=== PATIENT | male | born 1980 | race Caucasian/White ===

== ENCOUNTER 2016-11-13 11:06 | Emergency (ER) | payer OTHER ==
--- NOTE | 2016-11-13 12:31 | ED NURSING NOTES ---
Clinical Report - Nurses [facility] [address] [place] [address] 11/13/2016 11:06 Patient: JEWELS ACKERMAN TRIAGE Triage time 11:20. Acuity: LEVEL 4. Chief Complaint: BLOODY STOOLS. 11:11/13/16. Alert. No acute distress. ANASTASIA COMA SCORE: [place] Coma Scale: 15- eyes open spontaneously (4); best verbal response- oriented x 4 (5); best motor response- obeys commands (6). --11:31 Devin Perez R.N. 11:31 11/13/16. BP: 169/118. HR: 102. RR: 20. O2 saturation: 100%. Temp: 98.3 F. Pain level now 0/10. --11:31 Devin Perez R.N. Weight: 129.2 kg stated. Height/Length: 73 inches Per Patient. BMI: 37.6. --11:28 Devin Perez R.N. Medications Ibuprofen Oral. --11:30 Devin Perez R.N. Percocet Oral. --11:31 Devin Perez R.N. Vicodin Oral. --11:31 Devin Perez R.N. Allergies No Known Drug Allergy. --11:30 Devin Perez R.N. History Historian: patient. Primary physician (amira). ( Pt states he noted bright red blood in stool one week ago and "maybe again the other day". Currently not noticing blood in his stool. Pt also complains of chills.). Onset. (1 weeks ago). Treatment [employer]RE [employer]AD[employer]KER: Took ibuprofen. SOCIAL HX: Heavy tobacco smoker (cigarette)- less than 1 pack per day. History of drug use: marijuana. No alcohol use. FALL RISK ASSESSMENT: Fall risk assessment completed. No fall risk identified. NUTRITIONAL RISK ASSESSMENT: The nutritional risk assessment revealed no deficiencies. FUNCTIONAL ASSESSMENT: Functional assessment: no impairments noted. LEARNING NEEDS ASSESSMENT: The learning needs assessment revealed no barriers. SKIN INTEGRITY ASSESSMENT: Skin integrity risk assessment completed. No skin integrity risk identified. --11:31 Devin Perez R.N. SOCIAL HX: History of drug use. (percocet & vicodin from a friend). --11:32 Devin Perez R.N. ( Also complaining of back discomfort and numbness "from shoulders down in my back"). --11:32 Devin Perez R.N. PROBLEMS: Laceration. Hernia. Otitis Media. Abscess. Cellulitis. Hypertension. --11:30 Devin Perez R.N. Interventions To waiting room. --11:31 Devin Perez R.N. NURSING PROGRESS NOTES 12:02 11/13/16. The plan of care for this patient has been created. Patient gowned. Head of bed elevated. Two patient identifiers checked. Call light placed in reach. Side rails up x 2. Bed placed in lowest position. Brakes of bed on. Brakes of chair on. --12:02 Destin Blanchard R.N. 12:02 11/13/16. Patient ready for evaluation- chart flagged and notification provided. --12:02 Destin Blanchard R.N. DISPOSITION / DISCHARGE The patient left the Emergency Department without being seen by a physician; patient was accompanied by a barrel loader and cleaner. The patient appears to be alert and oriented x4. He notified the ED staff prior to leaving the department and stated is leaving the ED due to the long waiting time and to go to their primary care physician. Notified the ED physician and charge nurse of patient departure. Prior to leaving the ED, he was advised to stay for completion of treatment and return if needed. He left the Emergency Department ambulatory and via private vehicle. --12:31 Devin Perez R.N. Departure time: 1230. --12:31 Devin Perez R.N. Locked/Released at 11/13/2016 12:48 by Destin Blanchard R.N.
--- NOTE | 2016-11-13 12:31 | ED NURSING NOTES ---
Clinical Report - Nurses [facility] [address] [place] [address] 11/13/2016 11:06 Patient: JEWELS ACKERMAN TRIAGE Triage time 11:20. Acuity: LEVEL 4. Chief Complaint: BLOODY STOOLS. 11:11/13/16. Alert. No acute distress. ANASTASIA COMA SCORE: [place] Coma Scale: 15- eyes open spontaneously (4); best verbal response- oriented x 4 (5); best motor response- obeys commands (6). --11:31 Devin Perez R.N. 11:31 11/13/16. BP: 169/118. HR: 102. RR: 20. O2 saturation: 100%. Temp: 98.3 F. Pain level now 0/10. --11:31 Devin Perez R.N. Weight: 129.2 kg stated. Height/Length: 73 inches Per Patient. BMI: 37.6. --11:28 Devin Perez R.N. Medications Ibuprofen Oral. --11:30 Devin Perez R.N. Percocet Oral. --11:31 Devin Perez R.N. Vicodin Oral. --11:31 Devin Perez R.N. Allergies No Known Drug Allergy. --11:30 Devin Perez R.N. History Historian: patient. Primary physician (amira). ( Pt states he noted bright red blood in stool one week ago and "maybe again the other day". Currently not noticing blood in his stool. Pt also complains of chills.). Onset. (1 weeks ago). Treatment HOME HEALTH AID: Took ibuprofen. SOCIAL HX: Heavy tobacco smoker (cigarette)- less than 1 pack per day. History of drug use: marijuana. No alcohol use. FALL RISK ASSESSMENT: Fall risk assessment completed. No fall risk identified. NUTRITIONAL RISK ASSESSMENT: The nutritional risk assessment revealed no deficiencies. FUNCTIONAL ASSESSMENT: Functional assessment: no impairments noted. LEARNING NEEDS ASSESSMENT: The learning needs assessment revealed no barriers. SKIN INTEGRITY ASSESSMENT: Skin integrity risk assessment completed. No skin integrity risk identified. --11:31 Devin Perez R.N. SOCIAL HX: History of drug use. (percocet & vicodin from a friend). --11:32 Devin Perez R.N. ( Also complaining of back discomfort and numbness "from shoulders down in my back"). --11:32 Devin Perez R.N. PROBLEMS: Laceration. Hernia. Otitis Media. Abscess. Cellulitis. Hypertension. --11:30 Devin Perez R.N. Interventions To waiting room. --11:31 Devin Perez R.N. NURSING PROGRESS NOTES 12:02 11/13/16. The plan of care for this patient has been created. Patient gowned. Head of bed elevated. Two patient identifiers checked. Call light placed in reach. Side rails up x 2. Bed placed in lowest position. Brakes of bed on. Brakes of chair on. --12:02 Destin Blanchard R.N. 12:02 11/13/16. Patient ready for evaluation- chart flagged and notification provided. --12:02 Destin Blanchard R.N. DISPOSITION / DISCHARGE The patient left the Emergency Department without being seen by a physician; patient was accompanied by a garment steamer. The patient appears to be alert and oriented x4. He notified the ED staff prior to leaving the department and stated is leaving the ED due to the long waiting time and to go to their primary care physician. Notified the ED physician and charge nurse of patient departure. Prior to leaving the ED, he was advised to stay for completion of treatment and return if needed. He left the Emergency Department ambulatory and via private vehicle. --12:31 Devin Perez R.N. Departure time: 1230. --12:31 Devin Perez R.N. Locked/Released at 11/13/2016 12:48 by Destin Blanchard R.N.
--- NOTE | 2016-11-13 12:48 | ED MAR SUMMARY ---
..... Medication Administration Record [facility] [address] [place], [place] [id number] Patient: JEWELS ACKERMAN Visit ID: [id number] 36y, M Weight: 129.2 kg Height/Length: 73 in BMI: 37.6 ALLERGIES: No Known Drug Allergy
--- NOTE | 2016-11-13 12:48 | ED MED RECONCILIATION SUMMARY ---
Patient: JEWELS ACKERMAN Medication Reconciliation Report [facility] VisitID: [id number] [address] [place] [address] 36y, M Registration Date/Time: 11/13/2016 Weight: 129.2 kg Height/Length: 73 in. BMI: 37.6 ALLERGIES: No Known Drug Allergy The patient's Home Medications are listed below: THE FOLLOWING MEDICATIONS NEED TO BE RECONCILED: Ibuprofen Oral Percocet Oral Vicodin Oral The source(s) of the original Home Medication information: Not obtained. The following Medications were given to the patient in the Emergency Department: None. The following Medications were prescribed to the patient: None.
--- NOTE | 2016-11-13 12:48 | ED MED RECONCILIATION SUMMARY ---
Patient: JEWELS ACKERMAN Medication Reconciliation Report [facility] VisitID: [id number] [address] [place] [address] 36y, M Registration Date/Time: 11/13/2016 Weight: 129.2 kg Height/Length: 73 in. BMI: 37.6 ALLERGIES: No Known Drug Allergy The patient's Home Medications are listed below: THE FOLLOWING MEDICATIONS NEED TO BE RECONCILED: Ibuprofen Oral Percocet Oral Vicodin Oral The source(s) of the original Home Medication information: Not obtained. The following Medications were given to the patient in the Emergency Department: None. The following Medications were prescribed to the patient: None.
--- NOTE | 2016-11-13 12:48 | ED MAR SUMMARY ---
..... Medication Administration Record [facility] [address] [place] [place] [id number] Patient: JEWELS ACKERMAN Visit ID: [id number] 36y, M Weight: 129.2 kg Height/Length: 73 in BMI: 37.6 ALLERGIES: No Known Drug Allergy
== END 2016-11-13 12:30 | disposition left against medical advice (07) ==
LOC: ED SRH 11:06
DX: Z53.21 Procedure and treatment not carried out due to patient leaving prior to being seen by health care provider (principal)